=== PATIENT | female | born 2005 | race Asian ===

== ENCOUNTER 2024-12-23 14:15 | Emergency (ER) | payer OTHER, SELFPAY ==
[2024-12-23 14:22] VITALS: BP 124/79
[2024-12-23 14:46] LABS: % Basophils 1.6 % (0-2); % Immature Granulocytes 0.2 % (0-0.5); % Lymphocytes 35.4 % (20.5-51.1); % Neutrophils 50.8 % (42.2-75.2); Absolute Basophils 0.1 10^3/uL (0-0.2); Absolute Eosinophils 0.1 10^3/uL (0-0.7); Absolute Lymphocytes 1.7 10^3/uL (1.2-3.4); Absolute Monocytes 0.5 10^3/uL (0.1-0.6); Absolute Neutrophils 2.5 10^3/uL (1.4-6.5); Hematocrit 43.2 % (37.0-47.0); Hemoglobin 14.9 g/dL (12.0-16.0); Mean Corp Hgb Conc. 34.5 g/dL (33.0-37.0); Mean Corpuscular Hgb 29.4 pg (27.0-31.0); Mean Corpuscular Volume 85.4 fL (81.0-99.0); Mean Platelet Volume 9.6 fL (7.4-10.4); Nucleated Red Blood Cells % 0 %; Platelet Count 249 10^3/uL (130-400); Red Blood Cell Count 5.06 10^6/uL (4.20-5.40); White Blood Cell Count 4.9 10^3/uL (4.8-10.8)
[2024-12-23 15:05] LABS: ALT (SGPT) 15 U/L (0-35); AST (SGOT) 24 U/L (14-36); Albumin 4.6 g/dl (3.5-5.0); Alkaline Phosphatase 49 U/L (38-126); Blood Urea Nitrogen 7 mg/dl (7-17); Calcium 9.6 mg/dl (8.4-10.2); Carbon Dioxide 26 mmol/L (22-30); Chloride 111 mmol/L (98-107); Glucose 80 mg/dl (70-99); Potassium 4.4 mmol/L (3.5-5.1); Sodium 144 mmol/L (135-145); Total Bilirubin 0.5 mg/dl (0.2-1.3); eGFR > 60.00
[2024-12-23 15:12] LABS: HCG, Serum Qualitative Screen Negative
[2024-12-23 16:34] VITALS: BP 124/75
--- NOTE | 2024-12-23 16:44 | ED.GENMED ---
History of Present Illness
General
Chief Complaint: Fatigue
Time Seen by Provider: 12/23/24 16:44
History of Present Illness
History of Present Illness:
TIME OF INITIAL ENCOUNTER: 4:45 PM
HPI: Patient presents with fatigue. No PMD. She has history of iron deficiency anemia. She did have a recent prolonged period. She feels increasingly fatigued. No significant shortness of breath or any other significant symptoms. She did
recently start control and is already taking ferrous sulfate.
EXAM:
GENERAL: Well appearing in no distress
HEENT: Moist oral mucosa
CARDIOVASCULAR: No murmurs, normal heart rate, regular rhythm, No chest wall tenderness
PULMONARY: No respiratory distress, breath sounds are clear and equal
ABDOMEN: Soft with no peritoneal signs, no tenderness
NEUROLOGIC: Excellent strength all extremities, no coordination deficits
PSYCHIATRIC: Appropriate mental status, normal insight and judgement
EXTREMITIES: Nontender, no edema, moves all extremities equally
SKIN: No rash, no lesions
NUMBER AND COMPLEXITY OF PROBLEMS ADDRESSED AT THE ENCOUNTER
� Chronic conditions affecting care: Iron deficiency anemia
� Acute Exacerbation and/or Progression of Chronic Illness: This is a subacute problem
� Differential Diagnosis includes: Recurrence of iron deficiency anemia, anemia, blood loss from prolonged period
AMOUNT AND/OR COMPLEXITY OF DATA TO BE REVIEWED AND ANALYZED
� I performed an independent evaluation of and my interpretation is:
EKG:
CT:
X-rays:
Laboratory Studies: White count hemoglobin normal at 14.9, chemistries unremarkable
Other:
� Review of other/old records: I reviewed records, the patient was seen in 2021 with lightheadedness/dizziness
� Clinical information was obtained by an independent historian: None needed
� Prescriptions/Medications Considered but not given:
� Further testing considered but not performed:
RISK OF COMPLICATIONS AND/OR MORBIDITY OR MORTALITY OF PATIENT MANAGEMENT
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
� Discussion with other providers:
� Escalation of care including admission/observation vs risk of discharge considered: Hemoglobin is normal. Iron studies also normal. She is already taking ferrous sulfate. Unclear etiology of her fatigue however she is very
well-appearing and healthy in appearance.
ANY OTHER UPDATES:
Past History
Social History
Tobacco: Non-smoker
Alcohol: None
Drug: None
Phy Exam
Physical Exam
Physical Exam:
See HPI
Course
Orders/Labs/Results
Orders:
Orders
12/23/24 14:25
Test Result ONCE
12/23/24 14:31
Complete Blood Count/With Diff Urgent
Comprehensive Metabolic Panel Urgent
Ferritin Urgent
Comment: ADD ON
HCG, Serum Qualitative Screen Urgent
Iron Urgent
Total Iron Binding Urgent
12/23/24 16:46
Add On- LAB Urgent
Tests Added?: iron, ferrtin, TIBC
Abnormal Lab Results
12/23/24
14:31
Monocytes % 11.0 H %
(1.7-9.3)
Chloride 111 H mmol/L
(98-107)
12/23/24 14:31
12/23/24 14:31
Vital Signs
Initial and Last Documented VS:
Initial Vital Signs
Temp Pulse Resp BP Pulse Ox
36.7 C 67 16 124/79 98
12/23/24 14:22 12/23/24 14:22 12/23/24 14:22 12/23/24 14:22 12/23/24 14:22
Last Documented Vital Signs
Temp Pulse Resp BP Pulse Ox
36.7 C 51 16 124/75 100
12/23/24 14:22 12/23/24 16:34 12/23/24 16:34 12/23/24 16:34 12/23/24 16:34
*Critical Care Note
Total Time (30-74mins, 75-104mins- exclusive of procedures): Not Applicable
ED Attending Note
-
Portions of this chart may have been created with voice recognition software.� Occasional wrong word or��sound alike� substitutions may have occurred due to the inherent limitations of voice recognition software.
Discharge Plan
Departure
Patient Disposition: Home (Routine Discharge)
Date of Disposition: 12/23/24
Time of Disposition: 17:07
Patient with high blood pressure during this ER visit?: Yes
Discharge Problem:
Fatigue
Instructions: Fatigue (DC), BLOOD PRESSURE
Prescriptions:
No Action
ferrous sulfate 325 MG tablet,delayed release (DR/EC)
325 mg PO TID Qty: 90 0RF
Referrals:
NONE,* [Family Provider, Internal Medicine]
Interventions
Interventions:
*Risk Screen - Suicide Last Done: 12/23/24 14:24
*Neglect/Abuse Screening Last Done: 12/23/24 14:24
*Nursing Disposition Last Done: 12/23/24 17:28
Discharge Date and Time
Discharge Date/Time: 12/23/24 17:29
Print Language: LIBYAN
[2024-12-23 17:10] LABS: Iron 118 ug/dl (37-170)
[2024-12-23 17:20] LABS: Percent Saturation 32 % (20-50); Total Iron Binding Capacity 360 ug/dl (265-497)
== END 2024-12-23 17:29 | disposition home or self-care (01) ==
LOC: EMR 14:15
PROVIDERS: Student in an Organized Health Care Education/Training Program; EMERGENCY PHYSICIAN Emergency Medicine
DX: R53.83 Other fatigue (principal); D50.9 Iron deficiency anemia, unspecified
CPT/HCPCS: 99283; 80053; 82728; 83540; 83550; 84703; 85025